=== PATIENT | male | born 1985 | race Caucasian/White ===

== ENCOUNTER 2018-12-05 05:54 | Emergency (ER) | payer MEDICAID ==
[2018-12-05 06:19] VITALS: BP 112/73
--- NOTE | 2018-12-05 06:35 | EDM.PDOC ---
<Estefania Gagnon - Last Filed: 12/05/18 06:30> ED HPI GENERAL MEDICAL PROBLEM - General Chief Complaint: Genitourinary Problem Stated Complaint: POST SURGERY PROBLEMS Time Seen by Provider: 12/05/18 06:30 Source of Information: Reports: Patient History Limitations: Reports: No Limitations - History of Present Illness INITIAL COMMENTS - FREE TEXT/NARRATIVE: pt arrived with severe pain in the rt testicle. He had a vas done 3 weeks ago and he did well until the last 24 hours when he developed acute pain in the rt testicle. Onset: Other ( started last nite. ) Duration: Hour(s): Location: Reports: Other ( scrotal pain) Associated Symptoms: Reports: No Other Symptoms right testicle Pain Score (Numeric/FACES): 8 - Related Data Allergies Allergy/AdvReac Type Severity Reaction Status Date / Time amoxicillin Allergy Hives Verified 12/05/18 06:19 Home Meds: Home Meds NK [No Known Home Meds] 12/05/18 [History] Past Medical History - Past Health History Medical/Surgical History: Denies Medical/Surgical History Gastrointestinal History: Reports: GERD - Past Surgical History Male Surgical History: Reports: Vasectomy Musculoskeletal Surgical History: Reports: Arthroscopic Knee, Arthroscopic Procedure Social & Family History - Tobacco Use Smoking Status *Q: Never Smoker - Caffeine Use Caffeine Use: Reports: Coffee - Recreational Drug Use Recreational Drug Use: No ED ROS GENERAL - Review of Systems Review Of Systems: See Below Constitutional: Reports: No Symptoms HEENT: Reports: No Symptoms Respiratory: Reports: No Symptoms Cardiovascular: Reports: No Symptoms Endocrine: Reports: No Symptoms GI/Abdominal: Reports: No Symptoms : Reports: Other (pain in the rt testicle. ) Musculoskeletal: Reports: No Symptoms Skin: Reports: No Symptoms Neurological: Reports: No Symptoms ED EXAM, GI/ABD - Physical Exam Exam: See Below Text/Narrative:: pt arrived with acute pain in the rt testicle 3 weeks post vasectomy. He started to notice this last nite and it has gotten progressively worse. Exam Limited By: No Limitations General Appearance: Alert, Moderate Distress Ears: Normal TMs Nose: Normal Inspection Throat/Mouth: Normal Inspection Head: Atraumatic Neck: Normal Inspection Respiratory/Chest: No Respiratory Distress Cardiovascular: Regular Rate, Rhythm GI/Abdominal Exam: Soft, Non-Tender (Male) Exam: Other (pt has a deer tick embedded in his rt scrotal area. This was removed. He has a very tender rt testicle. It does not appear to be real swollen. The incisional sites look good. ) Rectal (Males) Exam: Deferred Back Exam: Normal Inspection Extremities: Normal Inspection Neurological: Alert, Oriented, Normal Cognition Psychiatric: Normal Affect Course - Vital Signs Last Recorded V/S: Last Vital Signs Temp 96.5 F 12/05/18 06:17 Pulse 78 12/05/18 06:17 Resp 20 12/05/18 06:17 BP 112/73 12/05/18 06:17 Pulse Ox 99 12/05/18 06:17 - Orders/Labs/Meds Orders: Active Orders 24 hr Category Date Time Status Scrotum and Contents [US] Stat Exams 12/05/18 06:28 Ordered UA W/MICROSCOPIC [URIN] Urgent Lab 12/05/18 06:30 Ordered Doxycycline [Vibramycin] Med 12/05/18 07:19 Once 100 mg PO ONETIME ONE Doxycycline [Vibramycin] Med 12/05/18 07:19 Once 100 mg PO ONETIME ONE Ibuprofen [Motrin] Med 12/05/18 07:19 Once 600 mg PO ONETIME ONE Medication Orders Doxycycline Hyclate (Vibramycin) 100 mg PO ONETIME ONE Stop: 12/05/18 07:20 Doxycycline Hyclate (Vibramycin) 100 mg PO ONETIME ONE Stop: 12/05/18 07:20 Ibuprofen (Motrin) 600 mg PO ONETIME ONE Stop: 12/05/18 07:20 Labs: Laboratory Tests 12/05/18 12/05/18 Range/Units 06:39 06:39 WBC 9.0 (4.5-11.0) K/uL RBC 4.52 (4.30-5.90) M/uL Hgb 14.2 (12.0-15.0) g/dL Hct 41.2 (40.0-54.0) % MCV 91 (80-98) fL MCH 31 (27-31) pg MCHC 35 (32-36) % Plt Count 177 (150-400) K/uL Neut % (Auto) 81 H (36-66) % Lymph % (Auto) 14 L (24-44) % [place] % (Auto) 4 (2-6) % Eos % (Auto) 1 L (2-4) % Baso % (Auto) 0 (0-1) % Sodium 140 (140-148) mmol/L Potassium 3.5 L (3.6-5.2) mmol/L Chloride 104 (100-108) mmol/L Carbon Dioxide 22 (21-32) mmol/L Anion Gap 17.5 H (5.0-14.0) mmol/L BUN 11 (7-18) mg/dL Creatinine 0.9 (0.8-1.3) mg/dL Est Cr Clr Drug Dosing 125.50 mL/min Estimated GFR (MDRD) > 60 (>60) Glucose 172 H (74-106) mg/dL Calcium 9.0 (8.5-10.1) mg/dL Meds: Medications Generic Name Dose Route Start Last Admin Trade Name Freq PRN Reason Stop Dose Admin Doxycycline Hyclate 100 mg 12/05/18 07:19 Vibramycin PO 12/05/18 07:20 ONETIME ONE Doxycycline Hyclate 100 mg 12/05/18 07:19 Vibramycin PO 12/05/18 07:20 ONETIME ONE Ibuprofen 600 mg 12/05/18 07:19 Motrin PO 12/05/18 07:20 ONETIME ONE Departure - Departure Disposition: Home, Self-Care 01 Clinical Impression: Tick bite of scrotum Qualifiers: Encounter type: initial encounter Qualified Code(s): S30.863A - Insect bite ( nonvenomous) of scrotum and testes, initial encounter; W57.XXXA - Bitten or stung by nonvenomous insect and other nonvenomous arthropods, initial encounter - Discharge Information Referrals: PCP,None [Primary Care Provider] - Forms: ED Department Discharge Additional Instructions: Take full course of antibiotics, use ibuprofen for pain control 600 mg 4 times a day as needed, Please followup with your primary care provider in 3-5 days if not better, please call return to the emergency department with worsening of symptoms. - My Orders Last 24 Hours: My Active Orders 12/05/18 07:19 Doxycycline [Vibramycin] 100 mg PO ONETIME ONE Doxycycline [Vibramycin] 100 mg PO ONETIME ONE Ibuprofen [Motrin] 600 mg PO ONETIME ONE - Assessment/Plan Last 24 Hours: My Active Orders 12/05/18 07:19 Doxycycline [Vibramycin] 100 mg PO ONETIME ONE Doxycycline [Vibramycin] 100 mg PO ONETIME ONE Ibuprofen [Motrin] 600 mg PO ONETIME ONE <OfficerSukhwinder - Last Filed: 12/05/18 07:22> Departure - Departure Time of Disposition: 07:21 Condition: Fair - Assessment/Plan Plan: Assessment Acuity = acute Site and laterality = deer tick bites scrotal Etiology = deer tick Manifestations = testicular pain Location of injury = Home Lab values = CBC, BMP unremarkable ultrasound of the testicles also unremarkable and then small hydrocele official read radiologist pending Plan Because of the deer tick exposure elected to treat empirically doxycycline 100 mg by mouth twice a day 14 days ibuprofen as needed for pain control follow-up primary care 3-5 days if no improvement This note was dictated using [employer] voice recognition software please call with any questions on syntax or grammar.
[2018-12-05] MEDS ORDERED: Doxycycline 100 MG Cap PO ONE ×2 (07:19)
[2018-12-05] MEDS ORDERED: Ibuprofen 600 MG Tab PO ONE (07:19)
--- NOTE | 2018-12-05 08:12 | CRLUS ---
INDICATION: Pain in the right testicle. Vasectomy 3 weeks ago. TECHNIQUE: Bilateral scrotal/testicular ultrasound. FINDINGS: Right testis measures 3.8 x 2.3 x 2.3 cm and left testis measures 3.7 x 2.2 x 2.8 cm. Both testicles are normal without mass and with blood flow confirmed to them without evidence of testicular torsion. Very tiny right-sided hydrocele. Both epididymides are unremarkable. Remainder negative. IMPRESSION: 1. Both testicles are normal without mass or torsion. No evidence of epididymal orchitis. 2. Very tiny right hydrocele. Dictated by Derian Ramirez MD @ Dec 05 2018 8:08AM Signed by Dr. Derian Ramirez @ Dec 05 2018 8:10AM
== END 2018-12-05 07:34 | disposition home or self-care (01) ==
LOC: JP.ED 05:54
DX: S30.863A Insect bite (nonvenomous) of scrotum and testes, initial encounter (principal); Z88.1 Allergy status to other antibiotic agents; W57.XXXA Bitten or stung by nonvenomous insect and other nonvenomous arthropods, initial encounter
CPT/HCPCS: 36415; 76870; 80048; 85025; 99284; A9270